=== PATIENT | male | born 1990 | race Caucasian/White ===

== ENCOUNTER 2018-07-22 17:24 | Emergency (ER) | payer OTHER ==
[~2018-07-22] VITALS: Ht 182.9 cm; Wt 86.4 kg
[2018-07-22] MEDS ORDERED: AMOXICILLIN500 M2 PO (17:56)
[2018-07-22] MEDS ORDERED: AMOXICILLIN500 MG PO (18:18)
[2018-07-22 20:15] VITALS: BP 119/74
== END 2018-07-22 20:15 | disposition home or self-care (01) | DRG 605 ==
LOC: ED 17:24
PROC: 0HQGXZZ Repair Left Hand Skin, External Approach (ICD-10-PCS; principal; 2018-07-22)
DX: S61.412A Laceration without foreign body of left hand, initial encounter (principal); W26.8XXA Contact with other sharp object(s), not elsewhere classified, initial encounter; Y93.89 Activity, other specified; Y92.89 Other specified places as the place of occurrence of the external cause; Y99.0 Civilian activity done for income or pay